=== PATIENT | male | born 1955 | race Caucasian/White ===

== ENCOUNTER 2018-01-30 18:43 | Inpatient (IN) | payer SELFPAY ==
[~2018-01-30 18:43] MED LIST: Dexamethasone 20 MG/5 ML VIAL ONE; Lidocaine 1% PF 5 ML VIAL ONE; Ondansetron HCl/PF 4 MG/2 ML Vial ONE; PHENYLEPHRINE-NS 100 MCG/ML 10 ML SYRINGE ONE; PROPOFOL 200 MG/20 ML VIAL ONE; Succinylcholine Chloride 20 MG/ML 10 ml SYRINGE FS ONE
[2018-01-30] MEDS ORDERED: Iothalamate Meglumine 60% 50 ML VIAL FS ONE (19:34)
[2018-01-30] MEDS ORDERED: Acetaminophen 325 MG TAB PO PRN (19:37)
[2018-01-30] MEDS ORDERED: Ondansetron HCl/PF 4 MG/2 ML Vial IVP PRN (19:37)
[2018-01-30] MEDS ORDERED: Fentanyl 100 MCG/2 ML VIAL ONE (19:46)
[2018-01-30] MEDS ORDERED: HYDROcodone/Acetaminophen 5/325 mg Tablet PO PRN ×2 (20:48)
--- NOTE | 2018-01-30 20:50 | RAD ---
RETROGRADE PYELOGRAM TWO VIEWS: 01/30/2018 8:30 p.m. HISTORY: A 62-year-old male with left obstructive uropathy due to left ureteral calculus. FINDINGS: The first image demonstrates a guide wire ascending from the bladder, up the ureter, with the distal portion curled in the left upper quadrant. The upper portion of the wire overlaps the 7 mm calculus at the L2 level. The second image demonstrates a double pigtail left ureteral stent, with upper curl at the T12 level and the lower curl in the left lower pelvis. The left ureteral calculus remains in place. IMPRESSION: 1. Placement of left ureteral stent. 2. Left proximal ureteral calculus. POS: GERALDINE
[2018-01-30] MEDS ORDERED: ALPRAZolam 0.5 MG TAB PO SCH (22:30)
[2018-01-31] MEDS: Sodium Chloride 0.9% 1,000 ML IV SCH ×4 (00:09→18:54)
--- NOTE | 2018-01-31 01:45 | OP ---
DATE OF SERVICE: 01/30/2018 PREOPERATIVE DIAGNOSES: 1. A 62-year-old male with history of left L2-3 obstructing ureteral stone, measuring 7 mm with perinephritic stranding. 2. Leukocytosis. 3. Bacteriuria. POSTOPERATIVE DIAGNOSES: 1. A 62-year-old male with history of left L2-3 obstructing ureteral stone, measuring 7 mm with perinephritic stranding. 2. Leukocytosis. 3. Bacteriuria. PROCEDURES: Cystoscopy, meatal dilatation, 6 x 26 double-J ureteral stent placement, 16-Belarusian Lee catheter placement. SURGEON: Sarah Garduno DO ANESTHESIA: General. COMPLICATIONS: None apparent. DISPOSITION: To the recovery room in stable condition. INTRAOPERATIVE FINDINGS: 1. Mild meatal stenosis approximately 14-16 Belarusian caliber. 2. No significant outlet obstruction from prostatic hyperplasia. 3. Debris within the bladder consistent with urinary tract infection. 4. Obstructing left ureteral stone, L2-3 ureter radiopaque. INDICATIONS FOR THE PROCEDURE AND HISTORY: Mr. Benítez is a 62-year-old male who presented to [facility] with history of 3-4 day history of left lower quadrant abdominal pain with history of subjective fever and chills. CT demonstrated significant perinephritic stranding with obstructing ureteral stone with mild hydronephrosis. As he presents with leukocytosis and bacteria, advised regarding urgent stent placement. Indications reviewed. Risks and complications including infection, bleeding, progression of sepsis, ureteral renal injury reviewed with him in detail. All questions were answered to his satisfaction and he desired to proceed. DESCRIPTION OF THE PROCEDURE: After an informed consent is signed, the patient is taken to the operating room. The patient already had received broad- spectrum antibiotics from the emergency room. Bilateral michael SCDs were placed. Genital area was formally prepped and draped. There was mild resistance passing a 21-Belarusian cystoscope; however, this was able to be passed. I subsequently dilated the meatus to 26-Belarusian with ease with Fabian sounds. The anterior and posterior urethra was within normal limits. There was suggestion of possible early bulbar stricture; however, this is nonobstructing, not warranting treatment. Prostatic urethra demonstrated coapting lateral lobes with no significant outlet obstruction. Bladder was entered which demonstrated moderate debris consistent with UTI. The UO's are identified in normal anatomical location. A 5-Belarusian open-ended catheter was utilized to intubate the left UO and a 0.35 sensor wire was able to be passed proximal to the stone I did have resistance passing the 6 x 26-Belarusian double-J ureteral stent. However, we were able to gently pass the stent up to the left upper pole. I did not perform a retrograde pyelogram as he presents with UTI. The stone was consistent with an obstructive component as there was resistance passing this 6-Belarusian stent; however, we were able to successfully pass it. A 16-Belarusian Lee catheter was placed. A drain attached to a gravity bag, demonstrating pink-tinged urine. The Lee catheter will remain in situ per my discretion for a few days as he presents with active UTI. Broad-spectrum antibiotics were continued until culture finalizes. MTDD
[2018-01-31 03:20] VITALS: BMI 25.2
[2018-01-31] MEDS ORDERED: ALPRAZolam 0.5 MG TAB PO PRN (03:20)
[2018-01-31 04:53] LABS: Anion Gap 16 mmol/L (10-20); BUN (Urea Nitrogen) 21 mg/dL (8.4-25.7); Calc. Creatinine Clearance 65 mL/min (70-130); Carbon Dioxide 23 mmol/L (22-29); Chloride 104 mmol/L (98-107); Estimated GFR-MDRD 57; Glucose 141 mg/dL (70-105); Potassium 4.5 mmol/L (3.5-5.1); Sodium 138 mmol/L (136-145)
[2018-01-31 05:26] LABS: Band 6 % (5-11); Hemoglobin 14.2 g/dL (14.0-18.0); Lymphocytes 10 % (21-51); MDiff Complete? YES; Mean Corpuscular Hemoglobin 32.8 pg (27.0-31.0); Mean Corpuscular Volume 96.5 fL (78.0-98.0); Mean Platelet Volume 5.9 fL (7.4-10.4); Monocytes 1 % (0-10); Neutrophil 83 % (42-75); Platelet Count 312 thou/uL (130-400); RBC Morphology Normal; Red Blood Cell (RBC) Count 4.32 mill/uL (4.70-6.10); White Blood Cell (WBC) Count 12.9 thou/uL (4.8-10.8)
--- NOTE | 2018-01-31 08:20 | PRG ---
DATE OF SERVICE: 01/31/2018 SUBJECTIVE: The patient complaining of urethral discomfort secondary to indwelling Lee catheter, otherwise doing well. States that he desires to go home. PHYSICAL EXAMINATION: VITAL SIGNS: Stable. T-max 99, heart rate 117, 98, 132/74. I's and O's 1295, 775 out. ABDOMEN: Soft, nontender, nondistended. GENITOURINARY: Lee catheter demonstrating oseas tinged urine. LABORATORY DATA: White count today has decreased from 20,000 to 12,000, 83 segs , renal function 1.29 currently on Rocephin. Urine culture is pending. IMPRESSION AND PLAN: Mr. Benítez is a 62-year-old male who presented with leukocytosis of 20,000, presents with urinary tract infection with obstructing left ureteral calculi, postoperative day #1 ureteral stent. I informed the patient that he should remain in house until urine culture finalized for outpatient antibiotic therapy. Elective ureteroscopy would be advised when culture negative. He is to continue his Flomax, as he has an indwelling Lee catheter. A meatal dilatation was performed so as such, I do prefer catheter to remain in situ for another day or two. A long discussion with the patient at bedside as he appears to be quite adamant about being discharged home. I informed the patient that it would safe for him to stay in house until culture finalized for appropriate antibiotic therapy as he presents with a sepsis picture. The patient states that he is willing to stay for another 24 hours. ERNST
[2018-01-31] MEDS: Tamsulosin HCl 0.4 MG CAP PO SCH (09:12)
--- NOTE | 2018-01-31 10:22 | PRG ---
DATE OF SERVICE: 01/31/2018 SUBJECTIVE: The patient continues to complain about his Lee catheter. Reports some discomfort wit h it. States he is able to find a position that is relatively comfortable, does not want to move fro m there. He has stated very anxious to get the catheter out and to go home. States his symptoms are all substantially better at this point. Patient did undergo a ureteral stent placement for obstruct ing stone with bacteriuria and leukocytosis with some persistent tachycardia. He also had a meatal d ilatation and recommendation is for the Lee catheter stay in place for at least 24-48 hours and to await final urine cultures. The patient reports that he takes Xanax 2 mg at bedtime and has done so for 30 years to help him sleep. OBJECTIVE: VITAL SIGNS: T-max is 99.2, temperature 98.5, pulse 117, was as low as 81 overnight. GENERAL APPEARANCE: The patient is awake and alert. He has some difficulty in understanding the con versation regarding some of his medications, but I believe it is primarily because he is so we focuse d on going home. CARDIOVASCULAR: Heart regular rate and rhythm, tachycardic, but no murmurs. LUNGS: Clear bilaterally. ABDOMEN: Benign. EXTREMITIES: Warm and dry without edema. LABORATORY DATA: White count is 12.9, hemoglobin 14.2, sodium 138, BUN is 21, creatinine is 1.29. IMPRESSION AND PLAN: 1. Left ureteral calculus with obstruction, status post stent placement. The patient has had a sten t placed yesterday and appears to be tolerating that aspect well. 2. Bacteria with leukocytosis. The patient's white blood cell count has come down considerably. He is now tachycardic, but appears to be normal cardiac at night when he is asleep and this may be simp ly some anxiety. He is still on Rocephin and will continue that until we have cultures. 3. Meatal stenosis status post dilatation. The patient needs a Lee catheter in for 24-48 hours. He is somewhat intolerant to it, but at present willing to give it 24 hours. We will go ahead and or eder him some p.r.n. Xanax to use throughout the day. He also has some pain medications. 4. Cannot determine if this patient has original sepsis or not. He did have an elevated white blood cell count and a lactic acid level, but he was not tachycardic. He may have had simple demarginatio n in response to the pain, nausea, and vomiting. His white blood cell count is improved and he is no t tachycardic at baseline.
[2018-01-31] MEDS: ALPRAZolam 0.25 MG TAB PO PRN ×2 (10:33→19:39)
[2018-01-31] MEDS ORDERED: Lactated Ringer's 1,000 ML IV SCH (15:00)
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
[2018-01-31] MEDS ORDERED: cefTRIAXone\\ROCEPHIN 1 GM in Sodium Chloride 0.9% 100 ML IVPB SCH (17:00)
[2018-01-31] MEDS ORDERED: ALPRAZolam 0.5 MG TAB PO SCH (21:00)
--- NOTE | 2018-01-31 21:48 | CON ---
DATE OF CONSULTATION: 01/31/2018 SERVICE: Pulmonary Medicine. REASON FOR CONSULT: IMCU patient. HISTORY OF PRESENT ILLNESS: The patient is a 62-year-old white male with past medical history significant for essentially nothing. He presented to the hospital with 4-day history of increasing abdominal discomfort. Originally, it was episodic but became constant with episodic exacerbations. Ultimately, he was discovered to have hydronephrosis secondary to an obstructing stone. On cystoscopy, retrograde stent was placed. There was significant amount of debris in the bladder, consistent with urinary tract infection. Ever since the procedure has been performed, patient had dramatic improvement in symptoms and his discomfort resolved. He denies any current fevers, chills, nausea, vomiting. Otherwise, he is in his usual state of health. PAST MEDICAL HISTORY: 1. Anxiety disorder. 2. Osteoarthritis. 3. History of nephrolithiasis. PAST SURGICAL HISTORY: 1. Leg surgery. 2. Hip surgery. 3. Knee surgery. 4. Eye surgery. 5. Ureteral stent placement and cystoscopy. FAMILY HISTORY: Noncontributory. SOCIAL HISTORY: He has been several times. He uses alcohol, and tobacco. He drinks at least a six or 12 pack on the weekends. He smokes half a pack of cigarettes on a daily basis and has less than 29-[id number]-[id number] history of smoking. Denies any street drugs. He has no exposed to chemicals, dust, asbestos or tuberculosis. ALLERGIES: No known drug allergies. MEDICATIONS: List of his inpatient medications were reviewed. I have given him a bolus of fluids. REVIEW OF SYSTEMS: General, Head, Ears, Eyes, Nose, Throat, Cardiovascular, Respiratory, GI, , Musculoskeletal, Neurologic, and Skin are negative except as mentioned in the HPI. PHYSICAL EXAMINATION: VITAL SIGNS: Afebrile currently with T-max of 99.4, pulse 117, blood pressure 111/46, respirations 13, saturation 96% on room air. GENERAL: The patient is awake and alert. He is in no apparent distress. LUNGS: Excellent air entry. There is no prolonged expiratory phase or wheezing appreciated. HEART: Normal rate, regular. ABDOMEN: Soft, nontender, nondistended. Bowel sounds are positive. MUSCULOSKELETAL: No cyanosis or clubbing. There is no pitting in the bilateral lower extremities. NEUROLOGIC: Grossly nonfocal. LABORATORY DATA: WBC 12.9 and beautifully down trending, hemoglobin 14.2, platelets 312,000. Band count is increasing a 6% with neutrophil count elevated at 83. Basic metabolic profile is unremarkable. Lactate 2.5. Liver function studies are unremarkable. Urinalysis is positive for 0-3 white blood cells with significant red blood cells. Benzodiazepines were present in the patient's urine drug screen. Otherwise, was unremarkable. IMAGIN. Chest x-ray demonstrates no acute cardiopulmonary abnormality. 2. CT of the abdomen and pelvis demonstrates hydroureter on the left associated with a 7 mm stone. There is extravasation of a presumed urine throughout the left perirenal space. ASSESSMENT: 1. Pyelonephritis. 2. Nephrolithiasis. 3. Severe sepsis with elevated lactate. DISCUSSION AND PLAN: We will give the patient a liter of fluid. I will culture the urine as I cannot find one in our system. Pulmonary Critical Care will continue to follow along in this location. From my perspective; however, he is stable for transition to the surgical unit. 70 minutes have been devoted to this patient in various activities. I personally reviewed all imaging studies and laboratory data noted within this document. For fifty percent of this time, I was interacting with the patient at the bedside or coordinating care with the care team. For the remainder of the time I was immediately available to the patient in the hospital unit. ERNST
[2018-02-01] MEDS ORDERED: Oxymetazoline HCl 0.05% ( 15 ML ) NASAL PRN (03:40)
[2018-02-01 03:42] LABS: #Lymphocytes 3.6 thou/uL (1.20-3.40); #Monocytes 1.1 thou/uL (0.11-0.59); #Neutrophils 8.3 thou/uL (1.40-6.50); %Basophils 0.3 % (0.0-1.0); %Eosinophils 0.3 % (0.0-10.0); %Lymphocytes 27.6 % (21.0-51.0); %Monocytes 8.3 % (0.0-10.0); %Neutrophils 63.5 % (42.0-75.0); Hemoglobin 13.3 g/dL (14.0-18.0); Mean Corpuscular HGB CONC 34.4 g/dL (32.0-36.0); Mean Corpuscular Hemoglobin 34.1 pg (27.0-31.0); Mean Corpuscular Volume 99.1 fL (78.0-98.0); Mean Platelet Volume 6.1 fL (7.4-10.4); Platelet Count 318 thou/uL (130-400); Red Blood Cell (RBC) Count 3.91 mill/uL (4.70-6.10)
[2018-02-01 03:55] LABS: Anion Gap 11 mmol/L (10-20); BUN (Urea Nitrogen) 22 mg/dL (8.4-25.7); Calc. Creatinine Clearance 88 mL/min (70-130); Calcium 8.9 mg/dL (7.8-10.44); Carbon Dioxide 26 mmol/L (22-29); Chloride 107 mmol/L (98-107); Estimated GFR-MDRD 81; Glucose 101 mg/dL (70-105); Potassium 3.9 mmol/L (3.5-5.1); Sodium 140 mmol/L (136-145)
--- NOTE | 2018-02-01 07:40 | PRG ---
DATE OF SERVICE: 02/01/2018 HISTORY OF PRESENT ILLNESS: Mr. Benítez is a 62-year-old male who presented with subjective history of fever, chills, leukocytosis, found to have a obstructing left proximal ureteral calculi with hydronephrosis and perinephric stranding. The ureteral stent was placed, however, stone was found to be impacted and stent was placed. He subsequently has done well with no fever, improvement of leukocytosis. Renal function improved from presenting creatinine of 1.2 to his baseline. We are awaiting urine cultures to return prior to his discharge. PHYSICAL EXAMINATION VITAL SIGNS: Stable, 97.4, 71, 14, 150/96. I's and O's are 5113 in, 3225 out. He is positive 1.8 liters. ABDOMEN: Soft, nontender, nondistended. GENITOURINARY: Lee catheter draining oseas tinged urine. LABORATORY DATA: White count today is 13, he presented with a white count of 20 ,000, 83 segs, no significant bandemia of concern, presented creatinine of 1.2, currently is 0.9, which is back to his baseline. Urine culture preliminary, no significant growth. IMPRESSION AND PLAN: A 62-year-old male who presented with left obstructing proximal ureteral stone, status post stent. 1. Leukocytosis, resolved. 2. Culture demonstrates preliminary negative. 3. Incidental meatal stenosis status post meatal dilatation. The patient is very adamant to be discharged home. From a urologic perspective, he may be discharged home as culture is negative. I do recommend the patient to be discharged with empiric antibiotic therapy, as there was significant debris upon cystoscopic evaluation within the bladder. Discontinue Lee this morning. Nursing staff will call me if he has difficulty voiding. Recommend the patient be discharged with ciprofloxacin x7 days, Flomax, Colace, Azo, Webster 5/325. He has followup appointment with me on 02/06/2018 at 11:00 a.m. for preoperative appointment to proceed with elective ureteroscopy, laser lithotripsy at a later date. He may be discharged when okay with Pulmonary, medical service. ERNST
[2018-02-01] MEDS: Sodium Chloride 0.9% 1,000 ML IV SCH (09:27)
[2018-02-01] MEDS: Tamsulosin HCl 0.4 MG CAP PO SCH (09:27)
[2018-02-01 11:02] VITALS: BP 127/61; TEMP 97
--- NOTE | 2018-02-01 11:53 | DIS ---
DATE OF ADMISSION: 01/30/2018 DATE OF DISCHARGE: 02/01/2018 DISCHARGE DIAGNOSES: 1. Obstructing left ureteral calculus. 2. Leukocytosis. 3. Meatal stenosis. HISTORY: This patient is a 62-year-old male who presented initially with abdominal pain. He present ed via the Emergency Department at an outside facility where scan indicated an obstructing left urete ral stone. The patient was then transferred to our Emergency Department here. HOSPITAL COURSE: The patient was admitted and Urology was consulted. The patient was taken to the o perating room where he was found to have mild meatal stenosis with debris from the bladder consistent with possible urinary tract infection and an obstructing ureteral obstructive stone at the L2-L3 are a. The patient had meatal dilatation and a double-J stent placed along with a Lee catheter. Of no te, the patient initially had a white count of 20,000 and a lactic acid level of 2.5. He was given I V hydration and continued on Rocephin. Subsequently, however, all cultures remained negative. As no michael, the patient did well postoperatively other than some discomfort from the Lee catheter. Once t his was discontinued, he was able to void adequately. Urology felt that the patient was stable for d ischarge to have outpatient followup. PHYSICAL EXAMINATION: VITAL SIGNS: On the day of discharge, temperature was 97.0, pulse 93, respirations 18, O2 sat 99%-10 0% on room air, BP 127/61. He had remained afebrile throughout. HEART: Regular rate and rhythm without murmurs. LUNGS: Clear bilaterally. ABDOMEN: Soft, nontender, nondistended. No CVAT. EXTREMITIES: Warm and dry. LABORATORY DATA: Repeat labs, white count was down to 13,000, hemoglobin 13.3, MCV was 99.1. Chemis tries normal. DISPOSITION: The patient will be discharged to home. DISCHARGE MEDICATIONS: He will continue with his usual home medications to include the Xanax. New m edications will be Tylenol No. 3 one p.o. q.6 hours p.r.n., Cipro 500 mg p.o. b.i.d. for 7 days, Cola ce 100 mg p.o. b.i.d. and Flomax 0.4 mg 1 p.o. daily. He is to have followup with Urology on 018 at 11:00 a.m. for a preoperative appointment with anticipation of laser lithotripsy at some point later. He is to have regular diet and regular activity level. He can use [id number] Azo Darinel dard as needed. He should return to the Emergency Department should he have any problems prior to th at time.
--- NOTE | 2018-02-01 12:50 | PRG ---
DATE OF SERVICE: 02/01/2018 SERVICE: Pulmonary Medicine. INTERVAL HISTORY: The patient is doing fine from a respiratory standpoint. He is breathing comfortably. He has no chest pain. He has no shortness of breath. There were no overnight events. He had no fevers. PHYSICAL EXAMINATION: VITAL SIGNS: Afebrile, pulse 93, blood pressure 127/61, respirations 18, saturation 100% on room air. GENERAL: The patient is awake, alert, no apparent distress. LUNGS: Decent air entry. There is no prolonged expiratory phase or wheezing present. HEART: Normal rate, regular. ABDOMEN: Soft, nontender, nondistended. Bowel sounds are positive. MUSCULOSKELETAL: No cyanosis or clubbing. No pitting in the bilateral lower extremities. NEUROLOGIC: Grossly nonfocal. LABORATORY DATA: WBC 13.0, hemoglobin 13.3, platelets 318,000. Basic metabolic profile is completely unremarkable. ASSESSMENT: 1. Pyelonephritis. 2. Nephrolithiasis s/p ureteral stent. 3. Severe sepsis, resolving. DISCUSSION AND PLAN: The patient is stable for transition out of the hospital from my perspective. He will need a brief course of antibiotics directed as pyelonephritis. Once he leaves this location, he will have no further requirements for Pulmonary or Critical Care opinion, and I will sign off. Please call with additional questions or concerns moving forward. ERNST
--- NOTE | 2018-02-02 08:05 | PQF ---
[employer] Machine Helper Crystal Reports Winform ViewerSt. Mackinac Straits Hospital Physician Query Form FERNANDA MARY ABDIER [id number] CLINICAL DOCUMENTATION CLARIFICATION FORM: POST DISCHARGE Addendum to original discharge summary date: ____ Late entry note date: __ Please exercise your independent, professional judgment in responding to the clarification form. Clinical indicators are provided on the bottom of this form for your review Please check appropriate box(es): [ ] Sepsis due to: (uti, ureteral stone etc.) Due to: [ ] Device (please specify) [ ] Implant [ ] Graft [ ] Infusion [ ] SIRS due to non-infectious process (please specify etiology) [ ] with organ dysfunction [ ] without organ dysfunction [ ] Severe sepsis with acute organ dysfunction of: (Examples: respiratory failure, encephalopathy, acute kidney failure, other) [ ] Septic Shock [ ] Localized infection without sepsis [ ] Other diagnosis [ ] Unable to determine In addition, please specify: Present on Admission (POA): [ ] Yes [ ] No [ ] Unable to determine For continuity of documentation, please document condition throughout progress notes and discharge summary. Thank You. CLINICAL INDICATORS - SIGNS / SYMPTOMS / LABS Sever sepsis with elevated lactate- consult "Can not determine if this patient has original sepsis or not. He did have an elevated white blood cell count and a lacic acid lever, but he is not tachycardic."- pn 9/4 Sever sepsis, resolving- pn 9/5 RISK FACTORS Infection/Bacteremia UTI, ureteral stone [employer] Machine Helper Crystal Reports Winform ViewerTREATMENTS: Blood/sputum/wound cultures ID Consult (This form is maintained as a part of the permanent medical record) 2014 [employer], [employer]. All Rights Reserved [email or web address] [phone] ERNST
== END 2018-02-01 11:50 | disposition home or self-care (01) | DRG 872 ==
LOC: ERS 18:43 → SDC/OP 20:36 → IMCU/EMU 20:40
PROVIDERS: ADMIT Hospitalist; ATTEND Hospitalist
PROC: 0T778DZ Dilation of Left Ureter with Intraluminal Device, Via Natural or Artificial Opening Endoscopic (ICD-10-PCS; principal; 2018-01-30)
DX: A41.9 Sepsis, unspecified organism (principal); E87.2 Acidosis; N39.0 Urinary tract infection, site not specified; N13.2 Hydronephrosis with renal and ureteral calculous obstruction; R65.20 Severe sepsis without septic shock; M19.90 Unspecified osteoarthritis, unspecified site; R73.9 Hyperglycemia, unspecified; D72.829 Elevated white blood cell count, unspecified; F41.9 Anxiety disorder, unspecified; F17.210 Nicotine dependence, cigarettes, uncomplicated; N35.9 Urethral stricture, unspecified
CPT/HCPCS: 36415; 74420; 80048; 85025; 99285; C1758; C1769; J0696; J1100; J2001; J2270; J2405; J2704; J3010; J7050; Q9961

== ENCOUNTER 2018-02-06 12:51 | Outpatient (CLI) | payer SELFPAY ==
[2018-02-06 16:16] LABS: #Basophils 0.1 thou/uL (0.0-0.2); #Eosinphils 0.3 thou/uL (0.0-0.7); #Lymphocytes 3.5 thou/uL (1.20-3.40); #Neutrophils 5.1 thou/uL (1.40-6.50); %Eosinophils 3.1 % (0.0-10.0); %Lymphocytes 35.3 % (21.0-51.0); %Monocytes 9.5 % (0.0-10.0); %Neutrophils 51.1 % (42.0-75.0); Hemoglobin 14.7 g/dL (14.0-18.0); Mean Corpuscular HGB CONC 34.4 g/dL (32.0-36.0); Mean Corpuscular Hemoglobin 33.9 pg (27.0-31.0); Mean Corpuscular Volume 98.6 fL (78.0-98.0); Mean Platelet Volume 6.1 fL (7.4-10.4); Platelet Count 373 thou/uL (130-400); RBC Distribution Width 11.9 % (11.5-14.5); Red Blood Cell (RBC) Count 4.34 mill/uL (4.70-6.10); White Blood Cell (WBC) Count 9.9 thou/uL (4.8-10.8)
[2018-02-06 16:20] LABS: Bilirubin Negative (Negative); Blood, Urine Large (Negative); Clarity CLOUDY (Clear); Glucose, Urine (Dipstick) Negative (Negative); Leukocyte Moderate (Negative); Specific Gravity, Urine 1.016 (1.002-1.036)
[2018-02-06 16:22] LABS: Bacteria/HPF None Seen HPF (None Seen); Hyaline Casts/LPF 0-3 HYALINE CAST LPF (0-3 Hyaline); PTT 27.9 SEC (22.9-36.1); Pathc Cast-AUWi Flag 0.58 (0-2.49); Prothrombin Time 13.3 SEC (12.0-14.7); Squamous Epithelial 0-3 HPF (0-3); WBC/HPF 21-50 HPF (0-3)
[2018-02-06 16:33] LABS: Yeast-AUWi Flag 54.3 (0-25.0)
[2018-02-06 16:34] LABS: Anion Gap 13 mmol/L (10-20); BUN (Urea Nitrogen) 18 mg/dL (8.4-25.7); Calc. Creatinine Clearance 0 mL/min (70-130); Calcium 9.9 mg/dL (7.8-10.44); Carbon Dioxide 30 mmol/L (22-29); Chloride 100 mmol/L (98-107); Estimated GFR-MDRD 72; Glucose 98 mg/dL (70-105); Potassium 4.1 mmol/L (3.5-5.1); Sodium 139 mmol/L (136-145)
[2018-02-06 16:39] LABS: Nitrite Unable to Interpret (Negative)
[2018-02-06 16:40] LABS: Protein, Urine (Dipstick) Trace mg/dL (Neg-Trace)
[2018-02-06 16:41] LABS: RBC/HPF GREATER THAN 50-TNTC HPF (0-3)
[2018-02-06 16:42] LABS: Yeast-All Forms None Seen HPF (None Seen)
--- NOTE | 2018-02-07 17:43 | EKG ---
Test Reason : Blood Pressure : / mmHG Vent. Rate : 070 BPM Atrial Rate : 070 BPM P-R Int : 166 ms QRS Dur : 084 ms QT Int : 398 ms P-R-T Axes : 025 042 -11 degrees QTc Int : 429 ms Normal sinus rhythm with sinus arrhythmia Possible Anterior infarct , age undetermined T wave abnormality, consider inferior ischemia Abnormal ECG No previous ECGs available Confirmed by DR. Aleyda GEE ([id number]) on 02/07/2018 5:43:01 PM Referred By: CHRISTELLE Confirmed By:DR. Aleyda GEE
== END 2018-02-06 12:52 | disposition home or self-care (01) ==
LOC: LABBT 12:51
PROVIDERS: ATTEND Urology
DX: Z01.818 Encounter for other preprocedural examination (principal); N20.1 Calculus of ureter
CPT/HCPCS: 80048; 81001; 85025; 85610; 85730; 87086; 93005; 93010

== ENCOUNTER 2018-02-15 10:59 | Day surgery (SDC) | payer SELFPAY ==
[2018-02-06 15:03] VITALS: BMI 25.2
[~2018-02-15 10:59] MED LIST changes: -Dexamethasone 20 MG/5 ML VIAL ONE; +Glycopyrrolate 0.2 MG/ML 5 ML SYRINGE ONE; -Lidocaine 1% PF 5 ML VIAL ONE; -Ondansetron HCl/PF 4 MG/2 ML Vial ONE; -Succinylcholine Chloride 20 MG/ML 10 ml SYRINGE FS ONE; +ePHEDrine/0.9% NaCl/PF SYRINGE 50 mg/10 ml ONE
[2018-02-15] MEDS ORDERED: Levofloxacin 500 mg/D5W 100 ml Premix Bag ONE (11:17)
[2018-02-15] MEDS ORDERED: cefTRIAXone\\ROCEPHIN 2 GM in Sodium Chloride 0.9% 100 ML IVPB SCH (11:30)
[2018-02-15] MEDS ORDERED: Iothalamate Meglumine 60% 50 ML VIAL FS ONE (12:12)
[2018-02-15] MEDS ORDERED: Midazolam HCl 2 mg/2 ml Vial ONE (12:15)
[2018-02-15] MEDS ORDERED: Fentanyl 100 MCG/2 ML VIAL ONE (12:15)
[2018-02-15] MEDS ORDERED: SUGAMMADEX SODIUM 200 MG/2 ML VIAL ONE (13:29)
[2018-02-15] MEDS ORDERED: Phenazopyridine HCl 97.5 MG TABLET ONE ×2 (13:54→13:55)
--- NOTE | 2018-02-15 14:27 | RAD ---
RETROGRADE PYELOGRAM TWO VIEWS: 02/15/18 HISTORY: Stent placement. Left ureteral stent is in satisfactory position. IMPRESSION: Placement of left ureteral stent. POS: PETAR
[2018-02-15] MEDS ORDERED: HYDROcodone/Acetaminophen 5/325 mg Tablet ONE (15:07)
--- NOTE | 2018-02-15 17:56 | OP ---
PREOPERATIVE DIAGNOSES: 1. A 62-year-old male with history of left 7 mm L2 proximal ureteral stone. 2. A 1-2 mm left upper pole punctate renal lithiasis. 3. History of meatal stenosis, 14-Filipino caliber. POSTOPERATIVE DIAGNOSES: 1. A 62-year-old male with history of left 7 mm L2 proximal ureteral stone. 2. A 1-2 mm left upper pole punctate renal lithiasis. 3. History of meatal stenosis, 14-Filipino caliber. PROCEDURES PERFORMED: Cystoscopy, meatal calibration dilatation, flexible ureteroscopy, laser lithot ripsy of proximal ureteral calculi, basket extraction of stone fragments, 6 x 24 double-J ureteral st ent placement with distal tail in situ. SURGEON: Sarah Garduno D.O. ANESTHESIA: General. COMPLICATIONS: None apparent. DISPOSITION: To the recovery room in stable condition. SPECIMEN: Stone for chemical analysis. INTRAOPERATIVE FINDINGS: 1. Obstructing adherent left proximal ureteral stone. 2. Bladder grossly unremarkable. 3. Meatal stenosis, caliber approximately 18-Filipino, previously approximately 14-Filipino. Lateral co apting lobes with no significant obstruction from benign prostatic hypertrophy. INDICATIONS FOR THE PROCEDURE AND HISTORY: Mr. Benítez is a 62-year-old male whom I have seen as a consultation, as he presented with leukocytosis of 20,000, elevated lactic acid. CT demonstrated lef t proximal ureteral stone with hydronephrosis with perinephritic stranding. His final culture was ne gative. He did well with antibiotic therapy and stent placement and presents today for ureteroscopy, laser lithotripsy. The stone was found to be somewhat impacted as there was resistance passing the initial stent, I informed patient that ureteroscopy, laser lithotripsy would be prudent. We discusse d alternative options such as ESWL. He desired to proceed with ureteroscopy for more definitive care . DESCRIPTION OF THE PROCEDURE: After an informed consent was signed, the patient was taken to the ope rating room, placed in a dorsal lithotomy position with the genital area prepped and draped in the [facility] sterile fashion. We attempted to pass a 21-Filipino cystoscope; however, as previous ther e was some stenosis of the meatus, somewhat improved; however, had resistance passing the 21-Filipino c ystoscope. Therefore, we calibrated the urethral meatus from 18-Filipino to 24-Filipino with ease and magallon bsequently the scope passed without difficulty. There was no other urethral stricture. Lateral coap ting lobes of the prostate were noted with no definite obstructive component. Bladder was grossly un remarkable. The previously placed ureteral stent was removed to the level of the meatus and a 0.35 s ensor wire was passed. This was seen in the left upper pole and a 10-Filipino dual-lumen access sheath was passed. Retrograde pyelogram confirmed proper placement of the wire and a second safety wire of 0.35 Super Stiff wire was passed. Using an 11/13 Filipino 46 cm navigator, we passed a navigator just distal to the stone. This passed without difficulty. Using a flexible ureteroscope, 200 micron las er fiber, we laser lithotripsied the stone. The stone appeared to be adherent. This was laser litho tripsied and rendered free from the mucosa and all fragments were basket extracted. I was able to pa ss the scope proximal to this to the level of the kidney, collecting system was surveyed demonstratin g no significant stone debris of concern. We surveyed the ureter, which demonstrated no evidence of ureteral mucosal trauma. The navigator was removed. Using the sensor wire, we passed a 6 x 24 doubl e-J ureteral stent, which passed without difficulty. As the 26-Filipino previously placed was somewhat redundant, he underwent a 6 x 24 stent placement today. Bladder was completely emptied and he carl ated the procedure well. He was discharged with [place] 5/325, #40; VESIcare 5 mg one p.o. daily x7 da ys, Flomax #10 provided, Colace p.r.n., Omnicef 300 mg one p.o. b.i.d. for 7 days, which he will cont inue until followup appointment, AZO p.r.n. He is scheduled to see me next for cystoscopy s tent pull under local.
[2018-02-20 17:11] LABS: CA Oxalate Dihydrate 10 % (.); CA Oxalate Monohydrate 80 % (.); CA Phosphate 10 % (.); Color Tan (.); Stone Weight 10.2 mg (.)
== END 2018-02-15 15:45 | disposition home or self-care (01) ==
LOC: SDC 10:59
PROVIDERS: ATTEND Urology
PROC: 0TF78ZZ Fragmentation in Left Ureter, Via Natural or Artificial Opening Endoscopic (ICD-10-PCS; principal; 2018-02-15)
PROC: 0T7D8ZZ Dilation of Urethra, Via Natural or Artificial Opening Endoscopic (ICD-10-PCS; principal; 2018-02-15)
PROC: 0T778DZ Dilation of Left Ureter with Intraluminal Device, Via Natural or Artificial Opening Endoscopic (ICD-10-PCS; principal; 2018-02-15)
DX: N20.2 Calculus of kidney with calculus of ureter (principal); N35.9 Urethral stricture, unspecified; Z87.891 Personal history of nicotine dependence
CPT/HCPCS: 74420; 82365; 88300; C1758; C1769; J0696; J1956; J2250; J2704; J3010; J7050; Q9961

== ENCOUNTER 2022-09-06 07:27 | Outpatient (CLI) | payer MEDICARE, BC | END 2022-09-06 07:28 | disposition home or self-care (01) | LOC: TBSIIMAG 07:27 | PROVIDERS: ATTEND Neurological Surgery | DX: M51.36 Other intervertebral disc degeneration, lumbar region (principal); M48.061 Spinal stenosis, lumbar region without neurogenic claudication; M48.07 Spinal stenosis, lumbosacral region | CPT/HCPCS: 72148 ==